=== PATIENT | male | born 1975 | race Caucasian/White ===

== ENCOUNTER 2017-06-19 09:06 | Inpatient (IN) | payer OTHER ==
[2017-06-19 10:42] VITALS: BMI 23.8
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
[2017-06-19] MEDS ORDERED: guaiFENesin/D-METHORPHAN HB 10 ML UNIT-DOSE CUPS PO PRN (12:48)
[2017-06-19] MEDS ORDERED: MAG HYDROX/AL HYDROX/SIMETH 30 ML UNIT-DOSE CUP PO PRN (12:48)
[2017-06-19] MEDS ORDERED: LOPERAMIDE HCL 2 MG CAPSULE PO PRN (12:48)
[2017-06-19] MEDS ORDERED: IBUPROFEN 400 MG TABLET (FP) PO PRN (12:48)
[2017-06-19] MEDS ORDERED: MAGNESIUM CITRATE 300 ML BOTTLE PO PRN (12:48)
[2017-06-19] MEDS ORDERED: P-EPHED 60MG/TRIPROLIDI 2.5MG TABLET PO PRN (12:48)
[2017-06-19] MEDS ORDERED: ACETAMINOPHEN 325 MG TABLET (FP) PO PRN (12:48)
[2017-06-19] MEDS ORDERED: MENTHOL/PHENOL 1 EACH UD MM PRN (12:48)
[2017-06-19] MEDS ORDERED: MAGNESIUM HYDROX 2400MG/30ML ORAL SUSPENSION 30 ML CUP PO PRN (12:48)
[2017-06-19] MEDS: diazePAM 5 MG TABLET PO PRN ×2 (13:54→22:31)
[2017-06-19] MEDS ORDERED: METHADONE HCL 10 MG TABLET (FOR DETOX USE ONLY) PO ONE ×2 (14:00→23:00)
--- NOTE | 2017-06-19 16:32 | EKG ---
Test Reason : Blood Pressure : / mmHG Vent. Rate : 066 BPM Atrial Rate : 066 BPM P-R Int : 136 ms QRS Dur : 088 ms QT Int : 432 ms P-R-T Axes : 060 061 053 degrees QTc Int : 452 ms NORMAL SINUS RHYTHM NORMAL ECG NO PREVIOUS ECGS AVAILABLE Confirmed by MD JUAN, HERNANDO ([id number]) on 06/19/2017 4:32:26 PM Referred By: Confirmed By:HERNANDO MARTINEZ MD
[2017-06-19] MEDS: hydrOXYzine PAMOATE 50 MG CAPSULE (FP) PO PRN (16:58)
[2017-06-19 18:20] LABS: URINE APPEARANCE SLCLOUDY; URINE BILIRUBIN NEGATIVE (NEGATIVE); URINE BLOOD NEGATIVE (NEGATIVE); URINE COLOR DKYELLOW; URINE GLUCOSE (UA) NEGATIVE (NEGATIVE); URINE KETONE NEGATIVE (NEGATIVE); URINE LEUK ESTERASE NEGATIVE (NEGATIVE); URINE NITRITE NEGATIVE (NEGATIVE); URINE PROTEIN NEGATIVE (NEGATIVE); URINE UROBILINOGEN 4.0 E.U/dl mg/dL (0.2-1.0)
[2017-06-19] MEDS: THIAMINE HCL 100 MG TABLET (FP) PO SCH (22:31)
[2017-06-19 22:50] LABS: URINE LEUK ESTERASE Negative (NEGATIVE)
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
[2017-06-20 09:50] LABS: MCH 29.1 pg (25.7-33.7); MCHC 32.9 g/dl (32.0-35.9); MEAN CELL VOLUME 88.4 fl (80-96); PLATELET COUNT 244 K/MM3 (134-434); RDW 14.1 % (11.9-15.9); WHITE BLOOD COUNT 10.9 K/mm3 (4.0-10.0)
[2017-06-20] MEDS ORDERED: METHADONE HCL 10 MG TABLET (FOR DETOX USE ONLY) PO ONE (10:00)
[2017-06-20 10:04] LABS: ALK PHOS 140 U/L (45-117); ANION GAP 9 (8-16); CALCIUM 9.5 mg/dL (8.5-10.1); CO2 27 mmol/L (21-32); CREATININE 0.8 mg/dL (0.7-1.3); GLUCOSE,RANDOM 71 mg/dL (74-106); SGOT/AST 26 U/L (15-37); SGPT/ALT 102 U/L (12-78); TOT PROT 7.9 g/dl (6.4-8.2)
[2017-06-20] MEDS: diazePAM 5 MG TABLET PO PRN ×3 (10:53→22:34)
[2017-06-20] MEDS: PRENATAL VITAMINS W/ FOLIC ACID TABLET (FP) PO SCH (10:53)
[2017-06-20] MEDS: NICOTINE 21 MG/24 HOURS TOPICAL PATCH TD SCH (10:54)
--- NOTE | 2017-06-20 15:18 | PN ---
BHS COWS - Scale Resting Pulse: 0= [place] 80 or Below Sweatin= Chills/Flushing Restless Observation: 1= Difficult to Sit Still Pupil Size: 0= Normal to Room Light Bone or Joint Aches: 2= Severe Diffuse Aches Runny Nose/ Eye Tearin= Nasal Congestion GI Upset > 30mins: 0= None Tremor Observation of Outstretched Hands: 2= Slight Tremor Visible Yawning Observation: 2= >3x During Session Anxiety or Irritability: 2=Irritable/Anxious Goose Flesh Skin: 3=Piloerection COWS Score: 14 BHS Progress Note (SOAP) Subjective: Tremors, Sweating, H/A, Body Aches. Objective: PT. A & O X 3, OBSERVED AMBULATING ON UNIT. NO ACUTE DISTRESS. 06/20/17 15:16 Vital Signs Temperature 97.0 F L 06/20/17 14:59 Pulse Rate 73 06/20/17 14:59 Respiratory Rate 18 06/20/17 14:59 Blood Pressure 119/81 06/20/17 14:59 O2 Sat by Pulse Oximetry (%) Laboratory Tests 06/19/17 06/20/17 06/20/17 15:54 06:05 06:05 WBC 10.9 H RBC 5.25 Hgb 15.3 Hct 46.4 MCV 88.4 MCH 29.1 MCHC 32.9 RDW 14.1 Plt Count 244 MPV 10.0 Sodium 142 Potassium 4.2 Chloride 106 Carbon Dioxide 27 Anion Gap 9 BUN 14 Creatinine 0.8 Creat Clearance w eGFR > 60 Random Glucose 71 L Calcium 9.5 Total Bilirubin 1.0 AST 26 ALT 102 H Alkaline Phosphatase 140 H Total Protein 7.9 Albumin 4.0 Urine Color Dkyellow Urine Appearance Slcloudy Urine pH 6.0 Ur Specific [place] 1.029 Urine Protein Negative Urine Glucose (UA) Negative Urine Ketones Negative Urine Blood Negative Urine Nitrite Negative Urine Bilirubin Negative Urine Urobilinogen 4.0 e.u/dl Ur Leukocyte Esterase Negative RPR Titer 06/20/17 06:05 WBC RBC Hgb Hct MCV MCH MCHC RDW Plt Count MPV Sodium Potassium Chloride Carbon Dioxide Anion Gap BUN Creatinine Creat Clearance w eGFR Random Glucose Calcium Total Bilirubin AST ALT Alkaline Phosphatase Total Protein Albumin Urine Color Urine Appearance Urine pH Ur Specific [place] Urine Protein Urine Glucose (UA) Urine Ketones Urine Blood Urine Nitrite Urine Bilirubin Urine Urobilinogen Ur Leukocyte Esterase RPR Titer Nonreactive LABS NOTED. Assessment: 06/20/17 15:16 WITHDRAWAL SYMPTOMS. Plan: CONTINUE DETOX. REPEAT AST, ALT ON 06/22/2017 FOR ELEVATED ADMISSION LEVELS.
[2017-06-20] MEDS: hydrOXYzine PAMOATE 50 MG CAPSULE (FP) PO PRN (19:21)
[2017-06-20] MEDS: THIAMINE HCL 100 MG TABLET (FP) PO SCH (22:34)
[2017-06-20] MEDS: CYCLOBENZAPRINE HCL 10 MG TABLET (FP) PO PRN (22:34)
[2017-06-20] MEDS: ZOLPIDEM TARTRATE 5 MG TABLET PO PRN (22:34)
[2017-06-21] MEDS: diazePAM 5 MG TABLET PO PRN ×4 (08:45→22:33)
[2017-06-21] MEDS ORDERED: METHADONE HCL 5 MG TABLET (FOR DETOX USE ONLY) PO ONE (10:00)
[2017-06-21] MEDS: PRENATAL VITAMINS W/ FOLIC ACID TABLET (FP) PO SCH (10:37)
[2017-06-21] MEDS: NICOTINE 21 MG/24 HOURS TOPICAL PATCH TD SCH (10:37)
--- NOTE | 2017-06-21 14:55 | PN ---
BHS COWS - Scale Resting Pulse: 1= [place] 81-100 Sweatin=Flushed/Facial Moisture Restless Observation: 3= Extraneous Movement Pupil Size: 0= Normal to Room Light Bone or Joint Aches: 2= Severe Diffuse Aches Runny Nose/ Eye Tearin= Runny Nose/Eyes GI Upset > 30mins: 2= Nausea/Diarrhea Tremor Observation of Outstretched Hands: 2= Slight Tremor Visible Yawning Observation: 0= None Anxiety or Irritability: 2=Irritable/Anxious Goose Flesh Skin: 0=Smooth Skin COWS Score: 16 BHS Progress Note (SOAP) Subjective: Sweating, nausea, bone and back pain, tremor, chills, interrupted sleep Objective: 06/21/17 14:54 Last Vital Signs Temp Pulse Resp BP Pulse Ox 96.5 F L 95 H 18 117/75 06/21/17 14:12 06/21/17 14:12 06/21/17 14:12 06/21/17 14:12 Laboratory Tests 06/19/17 06/20/17 06/20/17 15:54 06:05 06:05 WBC 10.9 H RBC 5.25 Hgb 15.3 Hct 46.4 MCV 88.4 MCH 29.1 MCHC 32.9 RDW 14.1 Plt Count 244 MPV 10.0 Sodium 142 Potassium 4.2 Chloride 106 Carbon Dioxide 27 Anion Gap 9 BUN 14 Creatinine 0.8 Creat Clearance w eGFR > 60 Random Glucose 71 L Calcium 9.5 Total Bilirubin 1.0 AST 26 ALT 102 H Alkaline Phosphatase 140 H Total Protein 7.9 Albumin 4.0 Urine Color Dkyellow Urine Appearance Slcloudy Urine pH 6.0 Ur Specific [place] 1.029 Urine Protein Negative Urine Glucose (UA) Negative Urine Ketones Negative Urine Blood Negative Urine Nitrite Negative Urine Bilirubin Negative Urine Urobilinogen 4.0 e.u/dl Ur Leukocyte Esterase Negative RPR Titer 06/20/17 06:05 WBC RBC Hgb Hct MCV MCH MCHC RDW Plt Count MPV Sodium Potassium Chloride Carbon Dioxide Anion Gap BUN Creatinine Creat Clearance w eGFR Random Glucose Calcium Total Bilirubin AST ALT Alkaline Phosphatase Total Protein Albumin Urine Color Urine Appearance Urine pH Ur Specific [place] Urine Protein Urine Glucose (UA) Urine Ketones Urine Blood Urine Nitrite Urine Bilirubin Urine Urobilinogen Ur Leukocyte Esterase RPR Titer Nonreactive Labs noted Assessment: 06/21/17 14:55 Withdrawal symptoms Plan: Continue detox
[2017-06-21] MEDS: CYCLOBENZAPRINE HCL 10 MG TABLET (FP) PO PRN (17:16)
[2017-06-21] MEDS: ZOLPIDEM TARTRATE 5 MG TABLET PO PRN (22:33)
[2017-06-21] MEDS: THIAMINE HCL 100 MG TABLET (FP) PO SCH (22:33)
[2017-06-22] MEDS: diazePAM 5 MG TABLET PO PRN ×2 (02:54→10:38)
[2017-06-22] MEDS ORDERED: METHADONE HCL 5 MG TABLET (FOR DETOX USE ONLY) PO ONE (10:00)
[2017-06-22] MEDS: PRENATAL VITAMINS W/ FOLIC ACID TABLET (FP) PO SCH (10:38)
[2017-06-22] MEDS: NICOTINE 21 MG/24 HOURS TOPICAL PATCH TD SCH (10:38)
[2017-06-22] MEDS: hydrOXYzine PAMOATE 50 MG CAPSULE (FP) PO PRN ×2 (12:12→19:19)
--- NOTE | 2017-06-22 12:54 | PN ---
BHS Progress Note (SOAP) Subjective: Fatigue, Body Aches, Sweating. Objective: PT. A & O X 3, OBSERVED AMBULATING ON UNIT. NO ACUTE DISTRESS. 06/22/17 12:52 Vital Signs Temperature 98.1 F 06/22/17 09:28 Pulse Rate 83 06/22/17 09:28 Respiratory Rate 18 06/22/17 09:28 Blood Pressure 111/71 06/22/17 09:28 O2 Sat by Pulse Oximetry (%) Laboratory Tests 06/19/17 06/20/17 06/20/17 15:54 06:05 06:05 WBC 10.9 H RBC 5.25 Hgb 15.3 Hct 46.4 MCV 88.4 MCH 29.1 MCHC 32.9 RDW 14.1 Plt Count 244 MPV 10.0 Sodium 142 Potassium 4.2 Chloride 106 Carbon Dioxide 27 Anion Gap 9 BUN 14 Creatinine 0.8 Creat Clearance w eGFR > 60 Random Glucose 71 L Calcium 9.5 Total Bilirubin 1.0 AST 26 ALT 102 H Alkaline Phosphatase 140 H Total Protein 7.9 Albumin 4.0 Urine Color Dkyellow Urine Appearance Slcloudy Urine pH 6.0 Ur Specific [place] 1.029 Urine Protein Negative Urine Glucose (UA) Negative Urine Ketones Negative Urine Blood Negative Urine Nitrite Negative Urine Bilirubin Negative Urine Urobilinogen 4.0 e.u/dl Ur Leukocyte Esterase Negative RPR Titer 06/20/17 06:05 WBC RBC Hgb Hct MCV MCH MCHC RDW Plt Count MPV Sodium Potassium Chloride Carbon Dioxide Anion Gap BUN Creatinine Creat Clearance w eGFR Random Glucose Calcium Total Bilirubin AST ALT Alkaline Phosphatase Total Protein Albumin Urine Color Urine Appearance Urine pH Ur Specific [place] Urine Protein Urine Glucose (UA) Urine Ketones Urine Blood Urine Nitrite Urine Bilirubin Urine Urobilinogen Ur Leukocyte Esterase RPR Titer Nonreactive LABS NOTED. Assessment: 06/22/17 12:52 WITHDRAWAL SYMPTOMS. Plan: CONTINUE DETOX. PRN FLEXERIL PO FOR BODY ACHES/ MUSCLE SPASMS. INCREASE DAILY PO FLUID INTAKE.
[2017-06-22] MEDS: CYCLOBENZAPRINE HCL 10 MG TABLET (FP) PO PRN (22:35)
[2017-06-22] MEDS: THIAMINE HCL 100 MG TABLET (FP) PO SCH (22:35)
[2017-06-22] MEDS: ZOLPIDEM TARTRATE 5 MG TABLET PO PRN (22:37)
--- NOTE | 2017-06-23 09:00 | PN ---
BHS Progress Note (SOAP) Subjective: body ache tiredness sweating Objective: 06/23/17 08:59 Vital Signs Temperature 97.1 F L 06/23/17 06:36 Pulse Rate 76 06/23/17 06:36 Respiratory Rate 18 06/23/17 06:36 Blood Pressure 102/68 06/23/17 06:36 O2 Sat by Pulse Oximetry (%) Laboratory Last Values WBC 10.9 K/mm3 (4.0-10.0) H 06/20/17 06:05 RBC 5.25 M/mm3 (4.00-5.60) 06/20/17 06:05 Hgb 15.3 GM/dL (11.7-16.9) 06/20/17 06:05 Hct 46.4 % (35.4-49) 06/20/17 06:05 MCV 88.4 fl (80-96) 06/20/17 06:05 MCH 29.1 pg (25.7-33.7) 06/20/17 06:05 MCHC 32.9 g/dl (32.0-35.9) 06/20/17 06:05 RDW 14.1 % (11.9-15.9) 06/20/17 06:05 Plt Count 244 K/MM3 (134-434) 06/20/17 06:05 MPV 10.0 fl (7.5-11.1) 06/20/17 06:05 Sodium 142 mmol/L (136-145) 06/20/17 06:05 Potassium 4.2 mmol/L (3.5-5.1) 06/20/17 06:05 Chloride 106 mmol/L (98-107) 06/20/17 06:05 Carbon Dioxide 27 mmol/L (21-32) 06/20/17 06:05 Anion Gap 9 (8-16) 06/20/17 06:05 BUN 14 mg/dL (7-18) 06/20/17 06:05 Creatinine 0.8 mg/dL (0.7-1.3) 06/20/17 06:05 Creat Clearance w eGFR > 60 (>60) 06/20/17 06:05 Random Glucose 71 mg/dL (74-106) L 06/20/17 06:05 Calcium 9.5 mg/dL (8.5-10.1) 06/20/17 06:05 Total Bilirubin 1.0 mg/dL (0.2-1.0) 06/20/17 06:05 AST 26 U/L (15-37) 06/20/17 06:05 ALT 102 U/L (12-78) H 06/20/17 06:05 Alkaline Phosphatase 140 U/L (45-117) H 06/20/17 06:05 Total Protein 7.9 g/dl (6.4-8.2) 06/20/17 06:05 Albumin 4.0 g/dl (3.4-5.0) 06/20/17 06:05 Urine Color Dkyellow 06/19/17 15:54 Urine Appearance Slcloudy 06/19/17 15:54 Urine pH 6.0 (5.0-8.0) 06/19/17 15:54 Ur Specific [place] 1.029 (1.001-1.035) 06/19/17 15:54 Urine Protein Negative (NEGATIVE) 06/19/17 15:54 Urine Glucose (UA) Negative (NEGATIVE) 06/19/17 15:54 Urine Ketones Negative (NEGATIVE) 06/19/17 15:54 Urine Blood Negative (NEGATIVE) 06/19/17 15:54 Urine Nitrite Negative (NEGATIVE) 06/19/17 15:54 Urine Bilirubin Negative (NEGATIVE) 06/19/17 15:54 Urine Urobilinogen 4.0 e.u/dl mg/dL (0.2-1.0) 06/19/17 15:54 Ur Leukocyte Esterase Negative (NEGATIVE) 06/19/17 15:54 RPR Titer Nonreactive (NONREACTIVE) 06/20/17 06:05 lab noted Assessment: 06/23/17 09:00 withdrawal sx Plan: observation with detox regimen
[2017-06-23] MEDS ORDERED: METHADONE HCL 10 MG TABLET (FOR DETOX USE ONLY) PO ONE (10:00)
[2017-06-23] MEDS: PRENATAL VITAMINS W/ FOLIC ACID TABLET (FP) PO SCH (10:47)
[2017-06-23] MEDS: NICOTINE 21 MG/24 HOURS TOPICAL PATCH TD SCH (10:47)
[2017-06-23] MEDS: CYCLOBENZAPRINE HCL 10 MG TABLET (FP) PO PRN ×2 (11:02→22:11)
[2017-06-23] MEDS ORDERED: cloNIDine HCL 0.1 MG TABLET PO ONE (11:21)
[2017-06-23] MEDS: THIAMINE HCL 100 MG TABLET (FP) PO SCH (22:11)
[2017-06-23] MEDS: ZOLPIDEM TARTRATE 5 MG TABLET PO PRN (22:11)
[2017-06-24] MEDS ORDERED: METHADONE HCL 5 MG TABLET (FOR DETOX USE ONLY) PO ONE (06:00)
[2017-06-24] MEDS: CYCLOBENZAPRINE HCL 10 MG TABLET (FP) PO PRN (09:01)
[2017-06-24] MEDS: PRENATAL VITAMINS W/ FOLIC ACID TABLET (FP) PO SCH (09:01)
[2017-06-24] MEDS: NICOTINE 21 MG/24 HOURS TOPICAL PATCH TD SCH (09:02)
[2017-06-24 09:56] VITALS: BP 113/79; PULSE 97; TEMP 97.1
--- NOTE | 2017-06-24 12:20 | DS ---
[facility] Detox Discharge Summary Admission Date: 06/19/17 Discharge Date: 06/24/17 - History Present History: Cocaine Dependence, Opioid Dependence Additional Comments: DETOX COMPLETED. Pertinent Past History: HEP C - Physical Exam Results Vital Signs: Vital Signs Temperature 97.1 F L 06/24/17 09:55 Pulse Rate 97 H 06/24/17 09:55 Respiratory Rate 18 06/24/17 09:55 Blood Pressure 113/79 06/24/17 09:55 O2 Sat by Pulse Oximetry (%) Pertinent Admission Physical Exam Findings: WITHDRAWAL SX - Treatment Hospital Course: Detox Protocol Followed, Detoxed Safely, Responded well, Discharged Condition Good, Rehab Referral Accepted Patient has Accepted a Rehab Referral to: [facility] - Medication Discharge Medications: Ambulatory Orders NK [No Known Home Medication] 06/19/17 - Diagnosis (1) Cocaine dependence Status: Acute (2) Hepatitis C Status: Chronic Qualifiers: Viral hepatitis chronicity: chronic (3) Opioid dependence with withdrawal Status: Acute (4) Nicotine dependence Status: Acute Qualifiers: Nicotine product type: cigarettes Substance use status: in withdrawal Qualified Code(s): F17.213 - Nicotine dependence, cigarettes, with withdrawal - AMA Did Patient Leave Against Medical Advice: No
== END 2017-06-24 10:05 | disposition home or self-care (01) | DRG 773 ==
LOC: YASAS 09:06 → Y3N 12:10
PROVIDERS: ADMIT Internal Medicine; ATTEND Internal Medicine
PROC: HZ2ZZZZ Detoxification Services for Substance Abuse Treatment (ICD-10-PCS; principal; 2017-06-19)
DX: F11.23 Opioid dependence with withdrawal (principal); F14.20 Cocaine dependence, uncomplicated; F17.213 Nicotine dependence, cigarettes, with withdrawal; F19.24 Other psychoactive substance dependence with psychoactive substance-induced mood disorder; F19.282 Other psychoactive substance dependence with psychoactive substance-induced sleep disorder; B18.2 Chronic viral hepatitis C
CPT/HCPCS: 36415; 80053; 81003; 85027; 86593; 93005; 93010